=== PATIENT | male | born 1990 | race Caucasian/White ===

== ENCOUNTER 2019-05-31 22:57 | Emergency (ER) | payer SELFPAY ==
[2019-05-31 22:58] VITALS: BP 158/112; PULSE 89; RESP 18; TEMP 37; O2SAT 100; BMI 25.9
--- NOTE | 2019-05-31 23:05 | ED.DCSUM_ITS ---
History of Present Illness Chief Complaint: Abd Pain Informant: Patient Onset: Hours Context: Sudden Onset Timing: Continuous Quality: Pain Location: And left upper quadrant Current Severity: Moderate Maximum Severity: Severe Worsened by: Attempt to eat Relieved by: Nothing Associated Symptoms: Nausea and vomiting x10 Narrative: Patient is a 29-year-old male who states he had pizza at 1330. He states the pizza tasted different. 1500 he began to vomit. He states he has vomited 10 times. He now reports bilateral upper quadrant abdominal pain near the costal margin. He denies radiation of pain to his back. There is a family history of cholelithiasis. He reports heartburn with greasy food. He denies cardiac or respiratory symptoms. He denies fever, chills or night sweats. He denies dysuria, frequency, urgency or hematuria. He denies history of renal ureterolithiasis. He did take MiraLAX because he thought he was constipated. He states 30 minutes after he drank the MiraLAX he vomited. Emesis is green in color. There is no coffee grounds or blood. He denies diarrhea. Prior similar symptoms: No Recent Illness/Hospitalization: No - Past Medical History (1) No significant past medical history Status: Acute Past Medical History - Allergies and Home Meds Allergies/Adverse Reactions: Allergies No Known Allergies Allergy (Verified 05/31/19 23:01) Primary Care Physician: Joaquín Guardado MD [Primary Care Provider] - Past Medical History: None Surgical History: no surgical history Smoking Status: Current some day smoker Alcohol: Rare Review of Systems General: Denies: Chills, Fever, Malaise, Subjective, Sweats ENT: Denies: Rhinorrhea, Sore throat Cardiovascular: Denies: Chest pain, Palpitations, Heart racing Respiratory: Denies: Dyspnea, Cough, Dyspnea on exertion Gastrointestinal: Reports: Abdominal pain, Nausea, Vomiting. Denies: Diarrhea, Constipation, Melena, Hematochezia, -, - Genitourinary: Denies: Dysuria, Hematuria, Frequency Musculoskeletal: Denies: Myalgias, Arthralgias, Neck pain, Back pain, Swelling, Extremity Pain, -, - Skin: Denies: Rash, Wounds Neurological: Denies: Headache, Weakness, Numbness Hematologic: Denies: Easy bruising Allergy: Denies: Uticaria, Swelling of the mouth Physical Exam Vital Signs/Narrative: Vital Signs Temp Pulse Resp BP Pulse Ox 05/31/19 22:58 98.6 F 89 18 158/112 H 100 Inital Vital Signs reviewed: Yes General: Well nourished, Well developed, Acute Distress Head: Normocephalic, Atraumatic Eyes: Perrl, EOMI ENT: Moist mucous membranes, No rhinorrhea Neck: Supple, Nontender Cardiovascular: Regular rate, Regular rhythm, No murmurs Respiratory: No distress, CTA bilaterally, Chest nontender Abdomen: Soft, Nondistended, Normal bowel sounds, Tender. Negative for: Guarding, Rebound tenderness, Hepatomegaly, Splenomegaly, Mass, Roy's sign Back: Nontender, Normal Inspection. Negative for: CVA tenderness Extremities: Nontender, No edema Skin: Normal color, No rash Neurological: Alert, Oriented x3, Cranial nerves II-XII grossly intact, Normal Strength, Normal Sensation Psychological: Normal affect, Normal Mood Diagnostic/Tx/Re-eval Laboratory Results 05/31/19 05/31/19 23:00 23:00 WBC 18.7 H RBC 5.10 Hgb 14.9 Hct 43.4 MCV 85.1 MCH 29.2 MCHC 34.3 RDW Std Deviation 39.3 RDW Coeff of Saige 12.7 Plt Count 257 MPV 9.3 Immature Gran % (Auto) 0.500 Neut % (Auto) 74.2 H Lymph % (Auto) 18.5 L Mclennan % (Auto) 5.9 Eos % (Auto) 0.7 Baso % (Auto) 0.2 Absolute Neuts (auto) 13.9 H Absolute Lymphs (auto) 3.47 Nucleated RBC % 0 Sodium 138 Potassium 3.7 Chloride 104 Carbon Dioxide 26.0 Anion Gap 8 BUN 11 Creatinine 1.02 Estim Creat Clear Calc 105.25 Est GFR (MDRD) Af Amer 112 Est GFR (MDRD) Non-Af 93 BUN/Creatinine Ratio 10.8 Glucose 96 Calcium 9.4 Total Bilirubin 0.50 AST 19 ALT 35 Alkaline Phosphatase 65 Total Protein 7.2 Albumin 4.2 Globulin 3.0 Albumin/Globulin Ratio 1.4 Lipase 70 L White count is elevated. Suspect this is secondary to nausea and vomiting. Elevated white count is nonspecific test. Since liver enzymes and lipase not elevated and his symptoms began after having food that tasted differently suspect this is secondary to food poisoning. - Medical Decision Making Nonhepatic cause. This also may represent food poisoning. Will obtain lipase to evaluate for pancreatitis. IV was established. He received 1 L of normal saline wide open. He was medicated with Reglan, Toradol and morphine. He received Zofran prior to arrival by squad. This had no effect. She was reassessed at 2345. Patient looks much better. He states his nausea is resolved and the pain has resolved. P.o. challenge was ordered. If he passes p.o. challenge will discharge to home Patient was reassessed at 0002. He passed p.o. challenge. Therefore, he will be discharged home ED Disposition - Plan for ED Patient: Disposition: Home or Assisted Living Diagnosis: Abdominal pain with vomiting, Moderate dehydration Instructions: VOMITING (8y-Adult) Referrals: Joaquín Guardado MD [Primary Care Provider] - 1-2 Days if not improving
[2019-05-31] MEDS: Ketorolac 15 MG/ML Vial IV (23:08)
[2019-05-31] MEDS: Metoclopramide 10 MG/2 ML Vial IV (23:08)
[2019-05-31] MEDS: 0.9% Normal Saline 1,000 ML 1000 ML IV (23:08)
[2019-05-31] MEDS: Morphine 4 MG/ML Syringe IV (23:09)
[2019-05-31 23:11] LABS: Absolute Lymphocyte Count 3.47 X10^3/uL (0.83-4.51); Absolute Neutrophil Count 13.9 X10^3/uL (2.0-7.7); Basophil# 0.04 X10^3/uL; Basophil% 0.2 % (0-1); Eosinophil# 0.13 X10^3/uL; Eosinophils% 0.7 % (0-5); Hematocrit 43.4 % (40-54); Hemoglobin 14.9 g/dL (13.0-16.5); Lymphocyte # 3.47 X10^3/ul (4.0); Lymphocyte % 18.5 % (19-41); Mean Corp Hgb Conc 34.3 g/dL (32-36); Mean Corpuscular Hgb 29.2 pg (27.0-32.0); Mean Corpuscular Volume 85.1 fL (80-94); Mean Platelet Vol. 9.3 fl (6.2-12.0); Monocyte# 1.11 X10^3/uL; Monocyte% 5.9 % (0-10); NRBC Flagged by Analyzer 0 % (0-5); Neutrophil # 13.89 X10^3/uL (2.7-7.7); Neutrophil % 74.2 % (47-70); Platelet Count 257 K/mm3 (150-450); RBC Distribution Width CV 12.7 % (11.6-14.6); RBC Distribution Width SD 39.3 fl (35.1-43.9); White Blood Count 18.7 K/mm3 (4.4-11.0)
[2019-05-31 23:27] LABS: ALB/GLOB Ratio 1.4 RATIO (0.9-2.4); AST(SGOT) 19 U/L (15-37); Alanine Aminotransfer ALT/SGPT 35 U/L (16-61); Albumin, Serum 4.2 g/dL (3.2-5.0); Alkaline Phosphatase 65 U/L (45-117); Anion Gap 8 (5-15); BUN 11 mg/dL (7-18); BUN/Creat Ratio 10.8 RATIO (10-20); Calcium,Total 9.4 mg/dL (8.5-10.1); Chloride 104 mmol/L (98-107); Creatinine, Serum 1.02 mg/dL (0.70-1.30); EST Glomerular Filtration Rate 93 mL/min (>60); Est Glom Filt Rate - Afr Amer 112 mL/min (>60); Estimated Creatinine Clearance 105.25 ml/min; Glucose 96 mg/dL (74-106); Lipase 70 U/L (73-393); Potassium 3.7 mmol/L (3.5-5.1); Protein, Total 7.2 g/dL (6.4-8.2); Sodium Level 138 mmol/L (136-145)
[2019-06-01 00:13] VITALS: BP 126/67; PULSE 68; RESP 13; O2SAT 97
== END 2019-06-01 00:14 | disposition home or self-care (01) ==
PROVIDERS: Emergency Provider Emergency Medicine; Family Provider Orthopaedic Surgery; PCP Orthopaedic Surgery
DX: R10.12 Left upper quadrant pain (principal); R10.11 Right upper quadrant pain; R11.2 Nausea with vomiting, unspecified; E86.0 Dehydration; F17.200 Nicotine dependence, unspecified, uncomplicated
CPT/HCPCS: 80053; 83690; 85025; 96361; 96374; 96375; 99285; J7030

== ENCOUNTER 2020-03-17 20:28 | Emergency (ER) | payer OTHER, SELFPAY ==
[2020-03-17 20:30] VITALS: BP 157/90; PULSE 90; RESP 18; TEMP 36.8; O2SAT 98; BMI 28.1
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
== END 2020-03-17 21:35 | disposition home or self-care (01) ==
LOC: ED 21:26
PROVIDERS: Emergency Provider Emergency Medicine; PCP Orthopaedic Surgery
DX: S56.415A Strain of extensor muscle, fascia and tendon of right ring finger at forearm level, initial encounter (principal); X58.XXXA Exposure to other specified factors, initial encounter; Y93.9 Activity, unspecified; Y92.9 Unspecified place or not applicable
CPT/HCPCS: 73130; 99282

== ENCOUNTER 2020-12-10 18:20 | Emergency (ER) | payer OTHER, SELFPAY ==
[2020-12-10 18:21] VITALS: PULSE 87; RESP 14; TEMP 37.2; O2SAT 100; BMI 29.3
[2020-12-10 18:24] VITALS: BP 153/91
[2020-12-10] MEDS: Lidocaine 1% (20 ml mdv) 20 ML Vial INFILT (18:40)
--- NOTE | 2020-12-10 18:46 | ED.VISSUMM ---
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 He is right-hand dominant. Tetanus is up-to-date within the last several years. No other injuries. Physical Examination: No acute distress vital signs stable afebrile. H EENT exam unremarkable. Lungs are clear. Heart regular rhythm no murmur. Abdomen soft nontender. Remedies moves all 4. Neurovascular intact. Specifically right hand has 5/5 pole framer strength normal sensation normal radial pulse. The right elbow has about a 3 cm laceration. It is linear and clean. Involves the skin and subcu tissue. Does not involve the the bone or joint. Neurologically is awake and alert with no focal motor deficits. Test Results: None Emergency Department Course and Treatment: Right elbow laceration repair. Procedure note:. Area cleaned with Shur-Clens irrigated with saline. Explored. Locally anesthetized 1% lidocaine. Closed using 3 simple interrupted 4-0 Ethilon sutures. Proper hemostasis wound closure obtained. Patient tolerated procedure well. Treatment Plan: Wound care. Suture removal in 10 days. Nurses will clean and dress. Disposition: Discharge Impression: Acute right elbow laceration of 3 cm with ER repair Worker's Comp. injury This note was generated with [employer] dictation software. It may contain incorrect words, spelling, and punctuation that were not noted in review of the chart prior to signing ED Disposition - Plan for ED Patient: Referrals: Care Physician,No Primary [Primary Care Provider] -
--- NOTE | 2020-12-10 18:46 | ED.RN ---
CALLED MARYLOU WITH [facility] AROUND 1830 AND HAD GOT NO ANSWER, LEFT MARYLOU A VOICEMAIL TO CALL THE ED
--- NOTE | 2020-12-10 18:48 | ED.DEP ---
ED Disposition - Plan for ED Patient: Disposition: Home or Assisted Living Instructions: ED Laceration: All Closures Referrals: [facility] [GROUP OF PHYSICIANS] - 10 Day for suture removal Additional Instructions: Very clean and dry. Monitoring signs of infection. Suture removal in 10 days. Tylenol and Motrin for pain.
== END 2020-12-10 19:33 | disposition home or self-care (01) ==
LOC: ED 19:03
PROVIDERS: Emergency Provider Emergency Medicine
DX: S51.011A Laceration without foreign body of right elbow, initial encounter (principal); W22.8XXA Striking against or struck by other objects, initial encounter; Y93.9 Activity, unspecified; Y92.9 Unspecified place or not applicable
CPT/HCPCS: 12002; 99284

== ENCOUNTER 2022-04-20 02:07 | Emergency (ER) | payer OTHER, SELFPAY ==
[2022-04-20 02:08] VITALS: BP 149/110; PULSE 106; RESP 18; TEMP 36.8; O2SAT 97; BMI 30.6
--- NOTE | 2022-04-20 02:14 | EKG12_ITS ---
Test Reason : DYSRHYTHMIA Blood Pressure : / mmHG Vent. Rate : 102 BPM Atrial Rate : 102 BPM P-R Int : 132 ms QRS Dur : 092 ms QT Int : 318 ms P-R-T Axes : 048 047 033 degrees QTc Int : 414 ms Sinus tachycardia Otherwise normal ECG Confirmed by JENNY SIMS, CANDE ([id number]), book or script editor TATO BARONE ([id number]) on 04/20/2022 9:05:04 AM Referred By: BB Confirmed By:CANDE ALVARADO MD
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
[2022-04-20 02:31] LABS: Bedside Glucose 100 mg/dL (74-106)
[2022-04-20] MEDS: 0.9% Normal Saline 1,000 ML 999 ML IV (02:31)
[2022-04-20 02:38] VITALS: BP 143/87; PULSE 94; RESP 18; O2SAT 94
== END 2022-04-20 03:19 | disposition home or self-care (01) ==
PROVIDERS: Emergency Provider Emergency Medicine; Visit Provider Emergency Medicine
DX: T67.5XXA Heat exhaustion, unspecified, initial encounter (principal); X30.XXXA Exposure to excessive natural heat, initial encounter
CPT/HCPCS: 82962; 93005; 96360; 99282; A4216

== ENCOUNTER 2022-12-26 19:39 | Emergency (ER) | payer OTHER, SELFPAY ==
[2022-12-26 19:40] VITALS: BP 148/95; PULSE 88; RESP 16; TEMP 36.6; O2SAT 98; BMI 29.3
--- NOTE | 2022-12-26 19:45 | RAD_ITS ---
STUDY: X-RAY - LEFT HAND, ATTENTION THUMB FINGER REASON FOR EXAM: Male, 32 years old. INJURY -- THUMB TECHNIQUE: 4 view(s) of the finger were obtained. COMPARISON: None. FINDINGS: Normal metacarpal head. Normal metacarpophalangeal joint. Normal proximal phalanx. Normal middle phalanx. Normal distal phalanx. Normal proximal interphalangeal joint. Normal distal interphalangeal joint. RAD/Finger(s) Min 2 Views IMPRESSION: Normal x-ray examination of the finger. Electronically Signed: Jose Rios MD at 20:12 EST ,
--- NOTE | 2022-12-26 21:28 | EDS_ITS ---
HPI History of Present Illness Chief Complaint: Upper Extremity Injury Narrative Narrative: Patient was at the gym. He dropped the back of a bench it bounced back up and hit directly into his left thumb in a linear fashion. It was not crushed between items. He is pulling mostly at the MCP joint. Nothing else hurts. He has prior fracture more distally in that thumb so he was concerned about this. No other injury. Motion or palpation make it worse and rest makes it better. Patient is right-hand dominant. PFSH PFSH Home Medications NK 05/31/19 [History Last Taken Unknown] Allergy/AdvReac Type Severity Reaction Status Date / Time No Known Allergies Allergy Verified 12/26/22 19:43 Social History Smoking Status: Never smoker ROS ROS ED Constitutional Constitutional ED: Denies fever(s) Gastrointestinal Gastrointestinal: Denies nausea or vomiting Musculoskeletal Musculoskeletal: Reports other Details: Left thumb pain. See history of present illness ; Denies neck pain Integumentary Denies Abrasions or rash Neurologic Neurologic: Denies paresthesias or weakness Hematologic/Lymphatic Hematologic/Lymphatic: Denies easy bleeding or easy bruising EXAM Physical Exam Narrative Exam Narrative: Patient is sitting comfortably in bed. No acute distress. HEENT shows no sign of trauma. Cardiorespiratory EXTR does easy breathing. No audible wheezing. Heart is regular. Extremities show some tenderness at the MCP joint. But its not swollen at this time. There is no deformity. There does not appear to be any ligamentous laxity with varus and valgus stress. Distally neurovascularly intact. Capillary refill is normal. Range of motion is actually still good even though the thumb is somewhat stiff. No sign of tendon disruption. No subungual hematoma. Const Vital Signs: 12/26/22 19:40 Temperature 97.9 F Temperature Source Temporal Pulse Rate 88 Respiratory Rate 16 Blood Pressure 148/95 H Blood Pressure Mean 112 Pulse Ox 98 Oxygen Delivery Method Room Air MDM MDM MDM Narrative Medical decision making narrative: My independent interpretation of the patient's 4 view x-ray of the left thumb shows some chronic arthritic type changes but no sign of acute fracture or dislocation. Final reading by radiology is normal x-ray examination of the finger. Patient likely has contusion of that joint. He may have some bleeding within that. This will resolve. We discussed splinting but I explained that this may promote more stiffness. Since he has no ligamentous instability or bony fracture I do not think splinting is required and I am concerned it may cause more problems and help. He will use ice nonsteroidals. He is comfortable with this plan. We discussed returning if he has significant swelling numbness tingling or other changes. If it is not improving in the next week or 2 he may need repeat films as not all fractures are visible on first films. Radiography Diagnostic Testing: Clinical Impression(s) from Imaging Studies Finger X-Ray 12/26/22 19:45 IMPRESSION: Normal x-ray examination of the finger. Electronically Signed: Jose Rios MD at 20:12 EST Reading Location ID and State: [facility] / ID , Service support , Discharge Plan Triage Chief Complaint: Upper Extremity Injury ED Provider: Fermin Gonzalez Dx/Rx/DC Orders Clinical Impression: Left thumb sprain Instructions: ED Finger Sprain Prescriptions: No Action NK Primary Care Provider: Joaquín Guardado Referrals: Joaquín Guardado MD [Primary Care Provider] - 10-14 Days if not better Disposition Disposition: Home, Self Care
== END 2022-12-26 21:42 | disposition home or self-care (01) ==
PROVIDERS: Emergency Provider Emergency Medicine; PCP Orthopaedic Surgery; Visit Provider Emergency Medicine
DX: S63.602A Unspecified sprain of left thumb, initial encounter (principal); W22.8XXA Striking against or struck by other objects, initial encounter; Y93.89 Activity, other specified; Y92.39 Other specified sports and athletic area as the place of occurrence of the external cause
CPT/HCPCS: 73140; 99282

== ENCOUNTER → 2023-10-14 | Outpatient (CLI) | payer OTHER, SELFPAY ==
[2023-10-14 11:09] LABS: Hematocrit 46.2 % (40-54); Hemoglobin 15.8 g/dL (13.0-16.5)
[2023-10-14 12:15] LABS: ALB/GLOB Ratio 1.2 RATIO (0.9-2.4); AST(SGOT) 18 U/L (15-37); Alanine Aminotransfer ALT/SGPT 42 U/L (16-61); Albumin, Serum 4.2 g/dL (3.2-5.0); Alkaline Phosphatase 65 U/L (45-117); Anion Gap 7 (5-15); BUN 13 mg/dL (7-18); BUN/Creat Ratio 10.8 RATIO (10-20); Calcium,Total 9.1 mg/dL (8.5-10.1); Chloride 106 mmol/L (98-107); Cholesterol 190 mg/dL (200); EST Glomerular Filtration Rate 75 mL/min (>60); Est Glom Filt Rate - Afr Amer 90 mL/min (>60); Estradiol 39.4 pg/mL; Follicle Stimulating Hormone 2.5 mIU/mL; Globulin 3.5 g/dL (2.2-4.2); Glucose 100 mg/dL (74-106); High Density Lipoprotein 66 mg/dL; Luteinizing Hormone 8.4 mIU/mL; Potassium 4.3 mmol/L (3.5-5.1); Prolactin 8.1 ng/mL; Protein, Total 7.7 g/dL (6.4-8.2); Sodium Level 139 mmol/L (136-145); Thyroid Stim Hormone (TSH) 1.87 uIU/mL (0.358-3.74); Triglycerides 79 mg/dL; Very Low Density Lipoprotein 16 mg/dL (5-40)
[2023-10-21 12:08] LABS: Sex Hormone-binding Globulin 25.1 nmol/L (16.5-55.9); Testosterone, % Free 2.83 % (1.50-4.20); Testosterone, Free 20.72 ng/dL (5.00-21.00); Testosterone, Total 732 ng/dL (264-916)
== END | disposition home or self-care (01) ==
LOC: LAB 10:24
PROVIDERS: PCP Orthopaedic Surgery; Referring Provider Registered Nurse; Visit Provider Registered Nurse
DX: E29.1 Testicular hypofunction (principal); R53.83 Other fatigue; Z12.5 Encounter for screening for malignant neoplasm of prostate; R68.82 Decreased libido; R63.5 Abnormal weight gain; R39.16 Straining to void; R35.0 Frequency of micturition
CPT/HCPCS: 36415; 80053; 80061; 82627; 82670; 83001; 83002; 84146; 84270; 84402; 84403; 84443; 85014; 85018; 82626

== ENCOUNTER 2024-03-01 02:06 | Emergency (ER) | payer OTHER, SELFPAY ==
[2024-03-01 02:07] VITALS: BP 182/98; PULSE 96; RESP 16; TEMP 36.3; O2SAT 97; BMI 30.8
--- NOTE | 2024-03-01 02:25 | RAD_ITS ---
EXAM: XR LEFT TIBIA AND FIBULA, 2 VIEWS CLINICAL INDICATION: pain TECHNIQUE: Frontal and lateral views of the left tibia and fibula. COMPARISON: Left ankle radiographs of this date. FINDINGS: BONES/JOINTS: Unremarkable. No acute fracture. No subluxation. Normal alignment. Preservation of the joint space. No sclerotic or destructive changes observed. SOFT TISSUES: Intra-tendinous ossicle noted within the infrapatellar tendon at its attachment upon the anterior tibial tuberosity. Mild soft tissue swelling about the lateral malleolus. No radiopaque foreign body. RAD/Tibia & Fibula 2 Views IMPRESSION: No acute fracture or dislocation. Electronically Signed: Memo Anne MD at 3:28 EDT ,
--- NOTE | 2024-03-01 02:25 | RAD_ITS ---
EXAM: XR LEFT ANKLE COMPLETE, 3 OR MORE VIEWS CLINICAL INDICATION: pain TECHNIQUE: Frontal, lateral and oblique views of the left ankle. COMPARISON: Left tibia/fibula and left foot radiographs of this date. FINDINGS: BONES/JOINTS: Unremarkable. No acute fracture. No subluxation. Normal alignment. Preservation of the joint space. No sclerotic or destructive changes observed. SOFT TISSUES: Mild soft tissue swelling noted about the lateral malleolus. No radiopaque foreign body. RAD/Ankle min 3 Views IMPRESSION: Soft tissue swelling about the lateral aspect of the ankle. No acute fracture or dislocation. Electronically Signed: Memo Anne MD at 3:29 EDT ,
--- NOTE | 2024-03-01 02:30 | RAD_ITS ---
EXAM: XR LEFT FOOT COMPLETE, 3 OR MORE VIEWS CLINICAL INDICATION: pain TECHNIQUE: Frontal, lateral and oblique views of the left foot. COMPARISON: Left ankle radiographs of this date. FINDINGS: BONES/JOINTS: Unremarkable. No acute fracture. No subluxation. Normal alignment. Preservation of the joint space. No sclerotic or destructive changes observed. SOFT TISSUES: Mild soft tissue swelling noted about the lateral aspect of the ankle.. No radiopaque foreign body. RAD/Foot min 3 Views IMPRESSION: Soft tissue swelling about the lateral aspect of the ankle. No acute fracture or dislocation. Electronically Signed: Memo Anne MD at 3:31 EDT ,
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
[2024-03-01 03:23] VITALS: BP 162/89; PULSE 85; RESP 16; TEMP 36.8; O2SAT 97
== END 2024-03-01 03:24 | disposition home or self-care (01) ==
PROVIDERS: Emergency Provider Emergency Medicine; PCP Orthopaedic Surgery; Visit Provider Emergency Medicine
DX: S90.32XA Contusion of left foot, initial encounter (principal); S93.402A Sprain of unspecified ligament of left ankle, initial encounter; Y92.481 Parking lot as the place of occurrence of the external cause; V28.09XA Other motorcycle driver injured in noncollision transport accident in nontraffic accident, initial encounter
CPT/HCPCS: 73590; 73610; 73630; 99283